=== PATIENT | female | born 1955 | race Caucasian/White ===

== ENCOUNTER → 2021-02-28 15:01 | Outpatient (CLI) | payer OTHER, SELFPAY ==
--- NOTE | ~2021-02-28 | MM_ITS ---
EXAMINATION: MM screening [facility] BI w yosvany HISTORY: Screening mammogram TECHNIQUE: Craniocaudal and mediolateral oblique 3-D tomosynthesis images were obtained and synthetic 2-D images were generated. CAD analysis was submitted and interpreted. COMPARISON: 08/01/2019, 12/14/2017, 11/27/2015 BREAST PARENCHYMAL COMPOSITION: There are scattered areas of fibroglandular density. FINDINGS: There is no evidence of suspicious mass, calcification, or architectural distortion to sugg est malignancy in either breast. There has been no suspicious interval change. IMPRESSION: 1. No mammographic evidence of malignancy. 2. Recommend routine screening mammography in one year. BI-RADS Category 1: Negative Reviewed, dictated and finalized at location A.
== END ==
PROVIDERS: PCP Family Medicine; Visit Provider Family Medicine
DX: Z12.31 Encounter for screening mammogram for malignant neoplasm of breast (principal)
CPT/HCPCS: 77063; 77067

== ENCOUNTER 2022-03-31 13:44 | Emergency (ER) | payer OTHER, SELFPAY ==
[2022-03-31 13:48] VITALS: BP 152/87; PULSE 79; RESP 16; TEMP 36.2; O2SAT 97
--- NOTE | 2022-03-31 14:08 | ED.ALLEREA ---
HPI - Allergic Reaction General Chief complaint: Allergic Reaction Stated complaint: insect bite/allergic reaction Time Seen by Provider: 03/31/22 14:01 History of Present Illness HPI narrative: 66-year-old female presents to the emergency room for evaluation of an insect bite and rash. Patient states she was outside gardening, when she was stung by an insect. Patient did not see the actual sting. Within 30 minutes she developed swelling around the site, and then developed pruritic rash to her arms and anterior posterior torso. Patient reportedly took 50 mg of Benadryl within 30 minutes of developing the rash. Patient initially had some shortness of breath and chest tightness, but that is since resolved. Related Data Allergies Allergy/AdvReac Type Severity Reaction Status Date / Time No Known Allergies Verified 03/31/22 13:50 Review of Systems Review of Systems: CONSTITUTIONAL: Denies fever, chills, or sweats. EYES: Denies visual changes, redness, or discharge. ENT: Denies rhinorrhea, congestion, sore throat, or otalgia. CARDIOVASCULAR: Denies chest pain, palpitations, or edema. RESPIRATORY: Denies cough or dyspnea. GASTROINTESTINAL: Denies abdominal pain, nausea, vomiting, or diarrhea. GENITOURINARY: Denies dysuria or hematuria. SKIN: Reports rash or itching. MUSCULOSKELETAL: Denies back pain, joint pain, or myalgia. NEUROLOGIC: Denies headache, numbness, dizziness, or weakness. PSYCHIATRIC: Denies anxiety or depression. [facility] Past Medical History Medical History Injury, wrist Internal hemorrhoids Surgical History Surgical History History of colonoscopy (~03/28/10) Family History Family History Father Acute myocardial infarction, Onset Age: 46 Mother Acute myocardial infarction, Onset Age: 76 Sibling Acute myocardial infarction, Onset Age: 40 Grandparent Carcinoma of colon, Onset Age: 80 Social History Social History Smoking status: Former smoker Alcohol intake: current Exam Narrative: GENERAL: Well-appearing, well-nourished, no physical limitations, and in no acute distress. HEAD: Normocephalic, atraumatic. EYES: Conjunctivae normal, PERRLA and EOMI. ENT: External nose normal, Nares clear, no rhinorrhea or epistaxis. Mucous membranes moist. Oropharynx without tonsillar hypertrophy exudate or other lesions. External ears normal, bilateral TMs normal bilaterally NECK: Supple. No adenopathy or masses. CHEST: Clear to auscultation. No respiratory distress. No wheezes rales or rhonchi. No tenderness. HEART: Regular rate and rhythm. No murmur heard. Normal peripheral pulses. EXTREMITIES: Normal range of motion. No edema. No clubbing or cyanosis SKIN: Swelling noted to left hand at the base of the thumb, centralized punctum jb there urticaria noted to bilateral axillae, and anterior posterior torso NEURO: No focal deficits. Alert and oriented x3. MAEW. CN's II-XI intact bilaterally, normal gait PSYCH: Cooperative. Normal mood and affect. Course Vital Signs Vital signs: Vital Signs Temperature 36.2 C L 03/31/22 13:48 Pulse Rate 79 03/31/22 13:48 Respiratory Rate 16 03/31/22 13:48 Blood Pressure 152/87 H 03/31/22 13:48 Pulse Oximetry 97 03/31/22 13:48 Temperature 36.2 C L 03/31/22 13:48 Pulse Rate 79 03/31/22 13:48 Respiratory Rate 16 03/31/22 13:48 Blood Pressure 152/87 H 03/31/22 13:48 Pulse Oximetry 97 03/31/22 13:48 Discharge Plan Discharge Clinical Impression: Allergic reaction Patient Disposition: Home, Self-Care Condition: Stable Instructions: Antibiotic Form, Insect Bite or Sting (ED), General Allergic Reaction (ED) Additional Instructions: Continue taking Benadryl as needed for the itching. May supplement Pe
[2022-03-31] MEDS: FAMOTIDINE 20 MG TABLET PO (14:12)
[2022-03-31 14:26] VITALS: BP 140/84; PULSE 70; RESP 16; O2SAT 99
== END 2022-03-31 14:26 | disposition home or self-care (01) ==
LOC: ANHED 14:09
PROVIDERS: Emergency Provider Nurse Practitioner Family; PCP Family Medicine
DX: T78.40XA Allergy, unspecified, initial encounter (principal)
CPT/HCPCS: 96372; 99283; A9270; J1100

== ENCOUNTER → 2023-01-15 11:12 | Outpatient (CLI) | payer MEDICARE, SELFPAY ==
--- NOTE | ~2023-01-15 | MM_ITS ---
EXAMINATION: MM screening [facility] BI w yosvany HISTORY: Screening mammogram TECHNIQUE: Craniocaudal and mediolateral oblique 3-D tomosynthesis images were obtained and synthetic 2-D images were generated. CAD analysis was submitted and interpreted. COMPARISON: 02/28/2021, 08/01/2019, 12/14/2017 BREAST PARENCHYMAL COMPOSITION: There are scattered areas of fibroglandular density. FINDINGS: No suspicious mass, calcification, or architectural distortion are identified in either kenneth ast to suggest malignancy. There has been no suspicious interval change. IMPRESSION: 1. No mammographic evidence of malignancy. 2. Recommend routine screening mammography in one year. BI-RADS Category 1: Negative Reviewed, dictated and finalized at location A.
== END ==
PROVIDERS: PCP Family Medicine; Visit Provider Family Medicine
DX: Z12.31 Encounter for screening mammogram for malignant neoplasm of breast (principal)
CPT/HCPCS: 77063; 77067

== ENCOUNTER 2023-04-08 11:32 | Outpatient (CLI) | payer MEDICARE, SELFPAY ==
[2023-04-08 13:04] LABS: Basophils Absolute Auto 0.1 K/mm3 (0.0-0.1); Basophils Percent Auto 0.9 % (0.2-1.2); Eosinophils Absolute Auto 0.1 K/mm3 (0-0.3); Eosinophils Percent Auto 1.9 % (0-4.4); Hematocrit 45.4 % (37.0-47.0); Hemoglobin 14.4 g/dL (12.0-15.0); Immature Granulocyte Absolute 0.02 K/mm3 (0.00-0.031); Immature Granulocyte Percent A 0.3 % (0-0.5); Lymphocytes Absolute Auto 2.57 K/mm3 (0.9-3.2); Lymphocytes Percent Auto 37.9 % (18.3-44.2); Mean Corpuscular HGB Conc 31.7 g/dl (32-36); Mean Corpuscular Hemoglobin 31.5 pg (26-34); Mean Corpuscular Volume 99.3 fl (80-100); Mean Platelet Volume 9.9 fl (7.4-10.4); Monocytes Absolute Auto 0.5 K/mm3 (0.1-0.6); Monocytes Percent Auto 7.7 % (2.6-8.5); Neutrophils Absolute Auto 3.5 K/mm3 (1.3-6.7); Neutrophils Percent Auto 51.3 % (45.5-73.1); Platelet Count Result 248 k/mm3 (150-375); Red Blood Count 4.57 M/mm3 (4.2-5.4); Red Cell Distribution Width 13.1 % (11.5-14.5); White Blood Count 6.8 K/mm3 (4.5-10.0)
[2023-04-08 13:22] LABS: Alanine Aminotransferase 21 U/L (6-35); Albumin Level 4.3 g/dL (3.5-5.1); Alkaline Phosphatase 56 U/L (38-126); Anion Gap 5 mmol/L (8-16); Aspartate Amino Transferase 37 U/L (14-36); Bilirubin,Total 0.7 mg/dL (0.2-1.3); Blood Urea Nitrogen 20 mg/dL (7-17); Calcium 9.8 mg/dL (8.4-10.2); Carbon Dioxide 31 mmol/L (22-30); Chloride 103 mmol/L (98-107); Cholesterol 225 mg/dL (0-200); Estimated Glomerular Filt Rate 56; Glucose 94 mg/dL (65-110); HDL Direct 98 mg/dL; Potassium 4.9 mmol/L (3.4-5.0); Sodium 139 mmol/L (137-145); Triglycerides 68 mg/dL (<150)
[2023-04-08 13:38] LABS: LDL Cholesterol Direct 92 mg/dL
[2023-04-08 13:52] LABS: Vitamin D 25 Hydroxy 51.5 ng/mL
[2023-04-08 18:01] LABS: Hepatitis C Virus Antibody Negative (Negative)
== END 2023-04-08 11:33 | disposition home or self-care (01) ==
LOC: ANHGOSHLAB 11:34
PROVIDERS: PCP Family Medicine; Visit Provider Family Medicine
DX: M85.80 Other specified disorders of bone density and structure, unspecified site (principal); Z11.59 Encounter for screening for other viral diseases; Z82.49 Family history of ischemic heart disease and other diseases of the circulatory system; E78.00 Pure hypercholesterolemia, unspecified
CPT/HCPCS: 36415; 80053; 80061; 82306; 85025; 86803

== ENCOUNTER 2024-08-09 13:54 | Outpatient (CLI) | payer MEDICARE, SELFPAY ==
--- NOTE | ~2024-08-09 | MM_ITS ---
EXAMINATION: MM screening [facility] BI w yosvany HISTORY: Screening TECHNIQUE: Craniocaudal and mediolateral oblique 3-D tomosynthesis images were obtained and synthetic 2-D images were generated. CAD analysis was submitted and interpreted. COMPARISON: Comparison to multiple prior studies sequentially, with oldest reviewed study dated 11/26. BREAST PARENCHYMAL COMPOSITION: Not dense: There are scattered areas of fibroglandular density. FINDINGS: There is no evidence of suspicious mass, calcification, or architectural distortion to sugg est malignancy in either breast. There has been no suspicious interval change. IMPRESSION: 1. No mammographic evidence of malignancy. 2. Recommend routine screening mammography in one year. BI-RADS Category 1: Negative Reviewed, dictated and finalized at location B. T FACILITIES TECHNICIAN
== END 2024-08-09 13:55 | disposition home or self-care (01) ==
LOC: MICIMG 13:55
PROVIDERS: PCP Family Medicine; Visit Provider Nurse Practitioner Family
DX: Z12.31 Encounter for screening mammogram for malignant neoplasm of breast (principal)
CPT/HCPCS: 77063; 77067

== ENCOUNTER 2025-03-26 08:02 | Outpatient (CLI) | payer MEDICARE, SELFPAY ==
--- OUTSIDE RECORDS SUMMARY | 2025-03-26 08:05 | XMS_ITS | Clinical Summary ---
Author Organization [facility] Address [address] 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
--- OUTSIDE RECORDS SUMMARY | 2025-03-26 08:05 | XMS_ITS | Clinical Summary ---
Author Organization [facility] Address [address] [place] [address] Care Team Providers Care Tool Grinder Operator External Name Role Phone None, Provider MD Primary Care Provider Unavaila ble Allergies No known active allergies Medications No known medications Immunizations Immunization Administration Dates Next Due Tdap (Boostrix) 10/20/2022 Social History Tobacco Use Types Packs/Day Years Used Date Smoking Tobacco: Never Smokeless Tobacco: Never Tobacco Cessation:Counseling Given: Not Answered Alcohol Use Standard Drinks/Week Comments Yes 0 (1 standard drink = 0.6 oz pur e alcohol) 4 drinks per week Comments No Sex and Gender Information Value Date Recorded Sex Assigned at Not on file Legal Sex Female 9:56 AM FILM PRINTER Gender Identity Not on file Sexual Orientation Not on file Last Filed Vital Signs Vital Sign Reading Time Taken Comments Blood Pressure 139/85 10/20/2022 11:57 AM FILM PRINTER Pulse 71 10/20/2022 11:57 AM FILM PRINTER Temperature 36.1 C (97 F) 10/20/2022 11:57 AM FILM PRINTER Respiratory Rate 18 10/20/2022 11:57 AM FILM PRINTER Oxygen Saturation 100% 10/20/2022 11:57 AM FILM PRINTER Inhaled Oxygen Concentration - - Weight 54.4 kg (120 lb) 10/20/2022 10:07 AM FILM PRINTER Height 162.6 cm (5' 4) 10/20/2022 10:07 AM FILM PRINTER Body Mass Index 20.6 10/20/2022 10:07 AM FILM PRINTER Plan of Treatment Health Maintenance Due Date Last Done Comments Colorectal Cancer Screening Colonoscopy (10 Years) 1957 Hepatitis C 12/27/1975 Mammogram Screening 1997 Pneumococcal Vaccine: 50+ Ye ars (1 of 1 - PCV) 12/27/2007 Zoster Vaccines (1 of 2) 12/27/2007 Dexa Scan (General) 2022 COVID-19 Vaccine (1 - 2023-2 5 season) 2024 DTaP, Tdap and Td Vaccines ( 2 - Td or Tdap) 10/20/2032 10/20/2022 RSV Immunization or 60+ Years (1 - 1-dose 75+ series) 2032 Meningococcal B Vaccine Aged Out No l onger eligible based on patient's age to complete this topic Meningococcal Vaccine Aged Out No sree zachery eligible based on patient's age to complete this topic RSV Immunizations Under 20 Months Aged Out No longer eligible based on patient's age to complete this topic Insurance [employer] Care Teams Tool Grinder Operator External Relationship Specialty Start Date End Date None, Provider, PCP - General UNKNOWN PHYSICIAN SPECIALTY 10/20/22
--- OUTSIDE RECORDS SUMMARY | 2025-03-26 08:05 | XMS_ITS | Referral Summary ---
Author Organization [place] [id number] [facility] Address [address] [place] [address] Care Team Providers Care Wood Lather Name Role Phone Harley Boyce MD Unavailable [phone] Leydi Bang MD Primary Care Provider + Allergies No known active allergies Medications calcium carb/vit D3/minerals (CALCIUM-VITAMI N D ORAL) Take by mouth 300 mg of Calcium Active multivitamin (MULTIPLE VITAMINS ORAL) Take by mouth Active ZINC ORAL Take by mouth Active Active Problems Problem Noted Date Diagnosed Date Decreased bone mass 12/28/2017 Osteopenia of multiple sites 12/28/2017 Osteoporosis 12/28/2017 Atypical chest pain 05/14/2015 Encounter for preventive health examination 03/14 Social History Tobacco Use Types Packs/Day Years Used Date Smoking Tobacco: Former Smokeless Tobacco: Never Tobacco Cessation:Counseling Given: Not Answered AUDIT-C Answer Date Recorded Q1: How often do you have a drink containing alc ohol? 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 Gender Identity Not on file Sexual Orientation Not on file Last Filed Vital Signs Vital Sign Reading Time Taken Comments Blood Pressure 138/86 06/23/2024 8:24 AM CDT Pulse 65 06/23/2024 8:24 AM CDT Temperature 37 C (98.6 F) 11/09/2022 2:01 PM TRUCK DRIVER TEAMSTER Respiratory Rate 20 11/09/2022 2:01 PM TRUCK DRIVER TEAMSTER Oxygen Saturation 97% 06/23/2024 8:24 AM CDT Inhaled Oxygen Concentration - - Weight 57.3 kg (126 lb 6.4 oz) 06/23/2024 8:24 A M CDT Height 162.6 cm (5' 4) 06/23/2024 8:24 AM CDT Body Mass Index 21.7 06/23/2024 8:24 AM CDT Plan of Treatment Not on file Procedures Procedure Name Priority Date/Time Associated Diagnosis Comments DEXA TBS AXIAL SKELETON BONE DENSITY 1 OR MORE SITES Schedule Routine, Read Routine (OP Routine) 07/06/2023 9:12 AM CDT Osteopenia of multiple sites from Last 3 Months or Most Recently Relevant to Health Maintenance Results * Dexa TBS Axial Skeleton Bone Density 1 or more sites (07/06/2023 9:12 AM CDT) Anatomical Region Laterality Modality Wrist, Body N/A Radiographic Camryn ging Narrative 07/06/2023 9:22 AM CDT Patient Name: Violeta Jennings Date of : 1955 Date of scan: 07/06/2023 Bone mineral density was performed on a [employer] Discovery Densitometer. Based on machine cross-calibration and precision studies the least significant changes of this densitometer is 0.024 g/cm2 at the spine, 0.020 g/cm2 at the total proximal femur, and 0.014g/cm2 at the forearm. HISTORY: This is a 67 y.o. postmenopausal female with a history of low bone mass and vitamin D deficiency. She reports that she has quit smoking. She does not have any smokeless tobacco history on file. Currently on treatment with calcium, vitamin D, and alendronate (Fosamax) and previously treated with raloxifene (Evista). INDICATIONS: Menopause status, treatment monitoring, vitamin D deficiency, and history of low bone mass. FINDINGS: BONE MINERAL DENSITY OF THE LUMBAR SPINE Bone Mineral Density (BMD) of the lumbar spine was measured from L1-L4 and the average density was calculated to be 0.825 gm/cm2. This corresponds to a T-score (standard deviations from the mean of young adults) of -2.0. When compared to the previous study of 07/02/2021 there has been no significant changes in bone density. BONE MINERAL DENSITY OF THE PROXIMAL FEMUR Bone Mineral Density (BMD) of the left hip total was found to be 0.859 gm/cm2. This corresponds to a T-score standard deviations from the mean of young adults of -0.7. Femoral neck is 0.680 gm/cm2 with a T-score (standard deviations from the mean of young adults) of -1.5. When compared to the previous study of 07/02/2021 there has been no significant changes in bone density. SUMMARY: Bone mineral density shows evidence of low bone mass at the lumbar spine and proximal femur and moderately increased fracture risk (Osteopenia). There has been no significant changes in bone density since previous measurement. The lumbar spine Trabecular Bone Score is 1.327 which suggests normal bone microarchitecture, compared to the general population. Final decisions regarding diagnostic or therapeutic recommendations should include BMD, TBS, additional clinical risk factors as well the clinical context of the patient. Please see attached TBS results for further details. ADDITIONAL COMMENTS: Postmenopausal Women and Men Over 50: Diagnostic criteria: Osteoporosis: BMD at or below -2.5 T-score; Osteopenia (low bone mass): BMD between -1.0 and -2.5 T-score. If the patient has a history of a fragility fracture, a fracture that occurred with trauma equivalent to a fall from a standing position or less, then the diagnosis is osteoporosis regardless of bone density. The history and data sections of the bone mineral density scan were prepared by Loyda Morin(R) CBDTeodoro who is accredited by the International Society of Clinical Densitometry. The overall patient assessment and scan interpretation were performed by Judith Stewart MD who is certified by the International Society of Clinical Densitometry. [id number] Judith Stewart MD IMG DXA PROCEDURES Final Resu lt from Last 3 Months or Most Recently Relevant to Health Maintenance Insurance [facility] [place] [address] [facility] [place] [address] [facility] Care Teams Wood Lather Relationship Specialty Start Date End Date Leydi Bang MD [facility] [address] [address] PCP - General Family Medicine 06/23/24 Harley Boyce MD Manager Sterile Cardiology 05/12/23
--- OUTSIDE RECORDS SUMMARY | 2025-03-26 08:05 | XMS_ITS | Encounter Summary ---
Author Organization [facility] Address [address] 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
--- OUTSIDE RECORDS SUMMARY | 2025-03-26 08:05 | XMS_ITS | Clinical Summary ---
Author Organization [place] [id number] [facility] Address [address] [place] [address] Care Team Providers Care Community Resource Officer Name Role Phone Harley Boyce MD Unavailable [phone] Leydi Bang MD Primary Care Provider + [...] 05/14/2015 Encounter for preventive health examination 03/14 Medical History Medical History Date Comments Sinusitis Osteopenia Family History Medical History Relation Name Comments Coronary artery disease Father Fami ly history of coronary artery disease - (Added by TW Conv)/Family history of coronary artery disease - (Added by TW Conv) Heart failure Father Family history of heart failure - (Added by TW Conv)/Family history of heart failure - (Added by TW Conv) Heart disease Sister Broken bones Neg Hx Hip fracture Neg Hx Kyphosis Neg Hx Osteoporosis Neg Hx Scoliosis Neg Hx Relation Name Status Comments Father Sister Social History Tobacco Use Types Packs/Day Years [...] on file Legal Sex Female 10:38 AM FILTER 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 Gender Identity Not on file Sexual Orientation Not on file Obstetrics History Last Filed Vital Signs Vital Sign Reading Time Taken Comments Blood Pressure 138/86 06/23/2024 8:24 AM CDT Pulse 65 06/23/2024 8:24 AM CDT Temperature 37 C (98.6 F) 11/09/2022 2:01 PM FILTER CLEANER Respiratory Rate 20 11/09/2022 2:01 PM FILTER CLEANER Oxygen Saturation 97% 06/23/2024 8:24 AM CDT Inhaled Oxygen Concentration - - Weight 57.3 kg (126 lb 6.4 oz) 06/23/2024 8:24 A M CDT Height 162.6 cm (5' 4) 06/23/2024 8:24 AM CDT Body Mass Index 21.7 06/23/2024 8:24 AM CDT Plan of Treatment Health Maintenance Due Date Last Done Comments Breast Cancer Screening-Mammogram 1955 Colon Cancer Screening-Colonoscopy 1957 Depression Screening 1957 Fall Risk Assessment 1955 Hepatitis C Screening 1955 Hepatitis B Screening 12/27/1975 Zoster Vaccine (1 of 2) 12/27/2007 Well Visit 65+ 2022 Covid-19 Vaccine (6 2023-2 5 season) 2024 06/11/2023, 06/08/2022, 07/30/2021, Additional history exists Influenza Vaccine (Season Ended) 2025 06/11/2023, 06/08/2022, 05/27/2021, Additional history exists Osteoporosis Screening-Bone Density Scan 07/06/2025 07/06/2023, 07/02/2021, 05/29/2020, Additional history exists DTaP/Tdap/Td Vaccine (3 - Td or Tdap) 10/20/2032 10/20/2022, 12/09/2015 Pneumococcal vaccine 65+ Completed 07/20/2023 Procedures Procedure Name Priority Date/Time Associated Diagnosis [...] Bone mineral density was performed on a [employer] Discovery Densitometer. Based on machine cross-calibration and [...] mineral density scan were prepared by Loyda Morin(Sharan) MILLY who is accredited by the International Society of Clinical Densitometry. The overall patient assessment and scan interpretation were performed by Judith Stewart MD who is certified by the International Society of Clinical Densitometry. [id number] Judith Stewart MD IMG DXA PROCEDURES Final Resu lt from Last 3 Months or Most Recently Relevant to Health Maintenance Insurance [facility] Care Teams Community Resource Officer Relationship Specialty Start Date End Date Leydi Bang MD [address] [place] [address] [address] PCP - General Family Medicine 06/23/24 Harley Boyce MD Track Repair Worker Cardiology 05/12/23
[2025-03-26 17:35] LABS: Hematocrit 38.5 % (37.0-47.0); Hemoglobin 12.5 g/dL (12.0-15.0); Mean Corpuscular HGB Conc 32.5 g/dl (32-36); Mean Corpuscular Hemoglobin 30.6 pg (26-34); Mean Corpuscular Volume 94.1 fl (80-100); Platelet Count Result 198 k/mm3 (150-375); Red Blood Count 4.09 M/mm3 (4.2-5.4); White Blood Count 6.9 K/mm3 (4.5-10.0)
[2025-03-26 17:39] LABS: Alanine Aminotransferase 91 U/L (6-35); Albumin Level 3.7 g/dL (3.5-5.1); Alkaline Phosphatase 89 U/L (38-126); Anion Gap 5 mmol/L (4-12); Aspartate Amino Transferase 89 U/L (14-36); Bilirubin,Total 0.5 mg/dL (0.2-1.3); Blood Urea Nitrogen 15 mg/dL (7-17); Calcium 8.7 mg/dL (8.4-10.2); Carbon Dioxide 26 mmol/L (22-30); Chloride 101 mmol/L (98-107); Cholesterol 159 mg/dL (0-200); Estimated Glomerular Filt Rate 54; Glucose 100 mg/dL (65-110); HDL Direct 33 mg/dL; Potassium 4.3 mmol/L (3.4-5.0); Sodium 132 mmol/L (137-145); Total Protein 7.2 g/dL (6.3-8.2); Triglycerides 137 mg/dL (<150)
[2025-03-26 18:13] LABS: Band Neutrophils Percent 9 % (0-6); Basophils Absolute Manual 0.06 K/mm3 (0.0-0.1); Basophils Percent Manual 1 % (0-1); Lymphocytes Absolute Manual 2.76 K/mm3 (1.1-4.5); Lymphocytes Percent Manual 40.0 % (18-44); Monocytes Absolute Manual 1.44 K/mm3 (0.1-0.90); Monocytes Percent Manual 21 % (3-9); Neutrophils Absolute Manual 2.62 K/mm3 (1.3-6.7); Neutrophils Percent Manual 29 % (46-73); Total Cells Counted 100
[2025-03-26 18:14] LABS: Schistocytes None Seen
[2025-03-26 18:25] LABS: Thyroid Stimulating Hormone 1.140 uIU/mL (0.465-4.680)
== END 2025-03-26 08:03 | disposition home or self-care (01) ==
LOC: ANHGOSHLAB 08:03
PROVIDERS: PCP Family Medicine; Visit Provider Family Medicine
DX: M85.80 Other specified disorders of bone density and structure, unspecified site (principal); Z78.0 Asymptomatic menopausal state; E78.2 Mixed hyperlipidemia; R53.83 Other fatigue; R93.1 Abnormal findings on diagnostic imaging of heart and coronary circulation; Z82.49 Family history of ischemic heart disease and other diseases of the circulatory system
CPT/HCPCS: 36415; 80053; 80061; 82306; 84443; 85025

== ENCOUNTER 2025-04-02 09:27 | Outpatient (CLI) | payer MEDICARE, SELFPAY ==
--- OUTSIDE RECORDS SUMMARY | 2025-04-02 09:40 | XMS_ITS | Clinical Summary ---
Author Organization [facility] Address [address] [place] [address] Care Team Providers Care Greenhouse Specialist Name Role Phone None, Provider MD Primary [...] on file Legal Sex Female 9:56 AM PROVER Gender Identity Not on file Sexual Orientation Not on file Last Filed Vital Signs Vital Sign Reading Time Taken Comments Blood Pressure 139/85 10/20/2022 11:57 AM PROVER Pulse 71 10/20/2022 11:57 AM PROVER Temperature 36.1 C (97 F) 10/20/2022 11:57 AM PROVER Respiratory Rate 18 10/20/2022 11:57 AM PROVER Oxygen Saturation 100% 10/20/2022 11:57 AM PROVER Inhaled Oxygen Concentration - - Weight 54.4 kg (120 lb) 10/20/2022 10:07 AM PROVER Height 162.6 cm (5' 4) 10/20/2022 10:07 AM PROVER Body Mass Index 20.6 10/20/2022 10:07 AM PROVER Plan of Treatment Health Maintenance Due Date [...] complete this topic Insurance [employer] Care Teams Greenhouse Specialist Relationship Specialty Start Date End Date None, Provider, PCP - General UNKNOWN PHYSICIAN SPECIALTY 10/20/22
--- OUTSIDE RECORDS SUMMARY | 2025-04-02 09:40 | XMS_ITS | Encounter Summary ---
Author Organization [facility] Address [address] Weiss[place]: Epic Prelude ADT [place] RITTER [address] Care Team Providers Care Shank Paperer Name Role Phone Unavailable Primary Care Provider [...] on file Legal Sex Female 3:02 AM PERSONAL CARE ATTENDANT Gender Identity Not on file Sexual Orientation Not on file documented as of this encounter Plan of Treatment Not on file documented as of this encounter Visit Diagnoses Not on filedocumented in this encounter
--- OUTSIDE RECORDS SUMMARY | 2025-04-02 09:40 | XMS_ITS | Clinical Summary ---
Author Organization [facility] Address [address] [place]: Epic Prelude ADT [place]RIX[place] [address] Care Team Providers Care Phytopathologist Name Role Phone Unavailable Primary Care Provider Unavailabl e Social History Tobacco Use Types Packs/Day Years Used Date Smoking Tobacco: Never Assessed Comments Unknown Sex and Gender Information Value Date Recorded Sex Assigned at Not on file Legal Sex Female 3:02 AM SUPERVISOR CEREAL Gender Identity Not on file Sexual Orientation [...]
--- OUTSIDE RECORDS SUMMARY | 2025-04-02 09:40 | XMS_ITS | Referral Summary ---
Author Organization [place] [id number] [facility] Address [address] [place] [address] Care Team Providers Care Production Quality Analyst Name Role Phone Harley Boyce MD Unavailable [phone] Leydi Bang MD Primary Care Provider + [...] on file Legal Sex Female 10:38 AM PORTER USED CAR LOT Gender Identity Not on file Sexual Orientation Not on file Last Filed Vital Signs Vital Sign Reading Time Taken Comments Blood Pressure 138/86 06/23/2024 8:24 AM CDT Pulse 65 06/23/2024 8:24 AM CDT Temperature 37 C (98.6 F) 11/09/2022 2:01 PM PORTER USED CAR LOT Respiratory Rate 20 11/09/2022 2:01 PM PORTER USED CAR LOT Oxygen Saturation 97% 06/23/2024 8:24 AM CDT [...] by the International Society of Clinical Densitometry. [id number] Judith Stewart MD IMG DXA PROCEDURES Final Resu lt from Last 3 Months or Most Recently Relevant to Health Maintenance Insurance [facility] [address] [facility] [place] [address] [facility] [employer] Care Teams Production Quality Analyst Relationship Specialty Start Date End Date Leydi Bang MD [facility] [address] [address] PCP - General Family Medicine 06/23/24 Harley Boyce MD Java Programmer Analyst Cardiology 05/12/23
--- OUTSIDE RECORDS SUMMARY | 2025-04-02 09:40 | XMS_ITS | Clinical Summary ---
Author Organization [place] [id number] [facility] Address [address] [place] [address] Care Team Providers Care Mis Manager Name Role Phone Harley Boyce MD Unavailable [phone] Leydi Bang MD Primary Care Provider + [...] on file Legal Sex Female 10:38 AM OPERATIONS LEADER Gender Identity Not on file Sexual Orientation Not on file Obstetrics History Last Filed Vital Signs Vital Sign Reading Time Taken Comments Blood Pressure 138/86 06/23/2024 8:24 AM CDT Pulse 65 06/23/2024 8:24 AM CDT Temperature 37 C (98.6 F) 11/09/2022 2:01 PM OPERATIONS LEADER Respiratory Rate 20 11/09/2022 2:01 PM OPERATIONS LEADER Oxygen Saturation 97% 06/23/2024 8:24 AM CDT [...] Bone mineral density was performed on a [employer] Discovery Densitometer. Based on machine cross-calibration and [...] by the International Society of Clinical Densitometry. [id number] Judith Stewart MD IMG DXA PROCEDURES Final Resu lt from Last 3 Months or Most Recently Relevant to Health Maintenance Insurance [facility] [employer] [facility] Care Teams Mis Manager Relationship Specialty Start Date End Date Leydi Bang MD [address] [place] [address] [address] PCP - General Family Medicine 06/23/24 Harley Boyce MD Orbitread Operator Cardiology 05/12/23
[2025-04-02 10:25] LABS: Alanine Aminotransferase 121 U/L (6-35); Albumin Level 3.5 g/dL (3.5-5.1); Alkaline Phosphatase 89 U/L (38-126); Anion Gap 4 mmol/L (4-12); Aspartate Amino Transferase 117 U/L (14-36); Bilirubin,Total 0.5 mg/dL (0.2-1.3); Blood Urea Nitrogen 13 mg/dL (7-17); Calcium 9.3 mg/dL (8.4-10.2); Carbon Dioxide 29 mmol/L (22-30); Chloride 98 mmol/L (98-107); Estimated Glomerular Filt Rate > 60; Glucose 93 mg/dL (65-110); Potassium 4.4 mmol/L (3.4-5.0); Sodium 131 mmol/L (137-145); Total Protein 6.9 g/dL (6.3-8.2)
== END 2025-04-02 09:28 | disposition home or self-care (01) ==
LOC: ANHLAB 09:35
PROVIDERS: PCP Family Medicine; Visit Provider Family Medicine
DX: R79.89 Other specified abnormal findings of blood chemistry (principal); E87.1 Hypo-osmolality and hyponatremia
CPT/HCPCS: 36415; 80048; 80076

== ENCOUNTER 2025-04-04 08:16 | Outpatient (CLI) | payer MEDICARE, SELFPAY ==
--- NOTE | ~2025-04-04 | US_ITS ---
US abdomen limited INDICATION: Abnormal lab values. PROCEDURE: Realtime right upper abdominal ultrasound. COMPARISON: No prior studies for comparison. FINDINGS: The pancreas is normal without focal mass or pancreatic ductal dilation. Liver echotexture is normal without focal mass or intrahepatic biliary dilatation. There is normal directional flow i n the portal vein. The gallbladder is normal without stones, gallbladder wall thickening or pericholecystic fluid. Comm on bile duct measures 4 mm. No sonographic Degroot's sign. IMPRESSION: 1: Normal limited abdominal ultrasound. Reviewed, dictated and finalized at location A.
== END 2025-04-04 08:17 | disposition home or self-care (01) ==
LOC: MICIMG 08:17
PROVIDERS: PCP Family Medicine; Visit Provider Family Medicine
DX: R79.89 Other specified abnormal findings of blood chemistry (principal)
CPT/HCPCS: 76705

== ENCOUNTER 2025-04-16 12:37 | Outpatient (CLI) | payer MEDICARE, SELFPAY ==
--- OUTSIDE RECORDS SUMMARY | 2025-04-16 12:40 | XMS_ITS | Clinical Summary ---
Author Organization [facility] Address [address] [place] [address] Care Team Providers Care Metal Hanging Supervisor Name Role Phone None, Provider MD Primary [...] on file Legal Sex Female 9:56 AM GEOCHEMICAL LABORATORY TECHNICIAN Gender Identity Not on file Sexual Orientation Not on file Last Filed Vital Signs Vital Sign Reading Time Taken Comments Blood Pressure 139/85 10/20/2022 11:57 AM GEOCHEMICAL LABORATORY TECHNICIAN Pulse 71 10/20/2022 11:57 AM GEOCHEMICAL LABORATORY TECHNICIAN Temperature 36.1 C (97 F) 10/20/2022 11:57 AM GEOCHEMICAL LABORATORY TECHNICIAN Respiratory Rate 18 10/20/2022 11:57 AM GEOCHEMICAL LABORATORY TECHNICIAN Oxygen Saturation 100% 10/20/2022 11:57 AM GEOCHEMICAL LABORATORY TECHNICIAN Inhaled Oxygen Concentration - - Weight 54.4 kg (120 lb) 10/20/2022 10:07 AM GEOCHEMICAL LABORATORY TECHNICIAN Height 162.6 cm (5' 4) 10/20/2022 10:07 AM GEOCHEMICAL LABORATORY TECHNICIAN Body Mass Index 20.6 10/20/2022 10:07 AM GEOCHEMICAL LABORATORY TECHNICIAN Plan of Treatment Health Maintenance Due Date [...] complete this topic Insurance [employer] Care Teams Metal Hanging Supervisor Relationship Specialty Start Date End Date None, Provider, PCP - General UNKNOWN PHYSICIAN SPECIALTY 10/20/22
--- OUTSIDE RECORDS SUMMARY | 2025-04-16 12:40 | XMS_ITS | Clinical Summary ---
Author Organization [facility] Address [address] Partida: Epic Prelude ADT [place] [address] Care Team Providers Care L Tacker Name Role Phone Unavailable Primary Care Provider Unavailabl e Social History Tobacco Use Types Packs/Day Years Used Date Smoking Tobacco: Never Assessed Comments Unknown Sex and Gender Information Value Date Recorded Sex Assigned at Not on file Legal Sex Female 3:02 AM STRETCHER DRIER OPERATOR Gender Identity Not on file Sexual Orientation [...]
--- OUTSIDE RECORDS SUMMARY | 2025-04-16 12:40 | XMS_ITS | Referral Summary ---
Author Organization [place] [id number] [facility] Address [address] [place] [address] Care Team Providers Care Hogshead Head Matcher Name Role Phone Harley Boyce MD Unavailable [phone] Leydi Bang MD Primary Care Provider + [...] on file Legal Sex Female 10:38 AM WASHER OFF Gender Identity Not on file Sexual Orientation Not on file Last Filed Vital Signs Vital Sign Reading Time Taken Comments Blood Pressure 138/86 06/23/2024 8:24 AM CDT Pulse 65 06/23/2024 8:24 AM CDT Temperature 37 C (98.6 F) 11/09/2022 2:01 PM WASHER OFF Respiratory Rate 20 11/09/2022 2:01 PM WASHER OFF Oxygen Saturation 97% 06/23/2024 8:24 AM CDT [...] by the International Society of Clinical Densitometry. [id number] Judith Stewart MD IMG DXA PROCEDURES Final Resu lt from Last 3 Months or Most Recently Relevant to Health Maintenance Insurance [facility] [place] [address] [facility] [place] [address] [facility] [employer] Care Teams Hogshead Head Matcher Relationship Specialty Start Date End Date Leydi Bang MD [facility] [address] [address] PCP - General Family Medicine 06/23/24 Harley Boyce MD Dental Hygienist Cardiology 05/12/23
--- OUTSIDE RECORDS SUMMARY | 2025-04-16 12:40 | XMS_ITS | Encounter Summary ---
Author Organization [facility] Address [address] Weissn: Epic Prelude ADT [place] RITTER [address] Care Team Providers Care Professor Of Psychology Name Role Phone Unavailable Primary Care Provider [...] on file Legal Sex Female 3:02 AM CHIEF LIBRARIAN MUSIC DEPARTMENT Gender Identity Not on file Sexual Orientation Not on file documented as of this encounter Plan of Treatment Not on file documented as of this encounter Visit Diagnoses Not on filedocumented in this encounter
--- OUTSIDE RECORDS SUMMARY | 2025-04-16 12:40 | XMS_ITS | Clinical Summary ---
Author Organization [place] 934104 [facility] Address [address] [place] [address] Care Team Providers Care Siphon Operator Name Role Phone Harley Boyce MD Unavailable [phone] Leydi Bang MD Primary Care Provider + [...] on file Legal Sex Female 10:38 AM MARINE METEOROLOGIST Gender Identity Not on file Sexual Orientation Not on file Obstetrics History Last Filed Vital Signs Vital Sign Reading Time Taken Comments Blood Pressure 138/86 06/23/2024 8:24 AM CDT Pulse 65 06/23/2024 8:24 AM CDT Temperature 37 C (98.6 F) 11/09/2022 2:01 PM MARINE METEOROLOGIST Respiratory Rate 20 11/09/2022 2:01 PM MARINE METEOROLOGIST Oxygen Saturation 97% 06/23/2024 8:24 AM CDT [...] 12/27/2007 Well Visit 65+ 2022 Covid-19 Vaccine (2023-2 5 season) 2024 06/11/2023, 06/08/2022, 07/30/2021, Additional history exists Influenza Vaccine (#1) 2025 , 06/08/2022, 05/27/2021, Additional history exists Osteoporosis Screening-Bone [...] Bone mineral density was performed on a [employer] Discovery Densitometer. Based on machine cross-calibration and [...] by the International Society of Clinical Densitometry. [id number] Judith Stewart MD IMG DXA PROCEDURES Final Resu lt from Last 3 Months or Most Recently Relevant to Health Maintenance Insurance [facility] [employer] [facility] [employer] Care Teams Siphon Operator Relationship Specialty Start Date End Date Leydi Bang MD [address] [place] [address] [address] PCP - General Family Medicine 06/23/24 Harley Boyce MD Churn Operator Margarine Cardiology 05/12/23
[2025-04-16 15:28] LABS: Alanine Aminotransferase 55 U/L (6-35); Albumin Level 3.8 g/dL (3.5-5.1); Alkaline Phosphatase 76 U/L (38-126); Anion Gap 5 mmol/L (4-12); Aspartate Amino Transferase 69 U/L (14-36); Bilirubin,Total 0.7 mg/dL (0.2-1.3); Blood Urea Nitrogen 15 mg/dL (7-17); Calcium 9.8 mg/dL (8.4-10.2); Carbon Dioxide 27 mmol/L (22-30); Chloride 104 mmol/L (98-107); Estimated Glomerular Filt Rate 57; Glucose 84 mg/dL (65-110); Potassium 4.7 mmol/L (3.4-5.0); Sodium 136 mmol/L (137-145); Total Protein 7.4 g/dL (6.3-8.2)
== END 2025-04-16 12:38 | disposition home or self-care (01) ==
PROVIDERS: PCP Family Medicine; Visit Provider Family Medicine
DX: R79.89 Other specified abnormal findings of blood chemistry (principal); E87.1 Hypo-osmolality and hyponatremia
CPT/HCPCS: 36415; 80053

== ENCOUNTER 2025-05-07 11:01 | Outpatient (CLI) | payer MEDICARE, SELFPAY ==
--- NOTE | ~2025-05-07 | XR_ITS ---
EXAMINATION: XR wrist LT min 3V DATE: 05/07/2025 11:46 INDICATION: Pain in left wrist. TECHNIQUE:4 images of the left wrist were obtained. COMPARISON: none FINDINGS: Bones appear osteopenic. Severe joint space narrowing with mild osteophytosis about the first carpometacarpal joint with adjacent soft tissue swelling. No fracture. No dislocation. IMPRESSION: 1. Severe joint space narrowing with mild osteophytosis about the first carpometacarpal joint is adjacent soft tissue swelling. If symptoms persist or worsen, consider a short-term follow-up study or additional imaging for further assessment. Reviewed, dictated and finalized at location Q. IMPRESSION: 1. Severe joint space narrowing with mild osteophytosis about the first carpome tacarpal joint is adjacent soft tissue swelling. If symptoms persist or worsen, consider a short-term follow-up study or additio nal imaging for further assessment.
== END 2025-05-07 11:02 | disposition home or self-care (01) ==
PROVIDERS: PCP Family Medicine; Visit Provider Student in an Organized Health Care Education/Training Program
DX: M18.12 Unilateral primary osteoarthritis of first carpometacarpal joint, left hand (principal); M25.432 Effusion, left wrist
CPT/HCPCS: 73110

== ENCOUNTER 2025-06-18 07:57 | Outpatient (CLI) | payer MEDICARE, SELFPAY ==
--- OUTSIDE RECORDS SUMMARY | 2025-06-18 08:07 | XMS_ITS | Clinical Summary ---
Author Organization [facility] Address [address] [place] [address] Care Team Providers Care Machine Stamper Name Role Phone None, Provider MD Primary [...] on file Legal Sex Female 9:56 AM CRUDE OIL TREATER Gender Identity Not on file Sexual Orientation Not on file Last Filed Vital Signs Vital Sign Reading Time Taken Comments Blood Pressure 139/85 10/20/2022 11:57 AM CRUDE OIL TREATER Pulse 71 10/20/2022 11:57 AM CRUDE OIL TREATER Temperature 36.1 C (97 F) 10/20/2022 11:57 AM CRUDE OIL TREATER Respiratory Rate 18 10/20/2022 11:57 AM CRUDE OIL TREATER Oxygen Saturation 100% 10/20/2022 11:57 AM CRUDE OIL TREATER Inhaled Oxygen Concentration - - Weight 54.4 kg (120 lb) 10/20/2022 10:07 AM CRUDE OIL TREATER Height 162.6 cm (5' 4) 10/20/2022 10:07 AM CRUDE OIL TREATER Body Mass Index 20.6 10/20/2022 10:07 AM CRUDE OIL TREATER Plan of Treatment Health Maintenance Due Date Last Done Comments Colorectal Cancer Screening Colonoscopy (10 Years) 1955 Hepatitis C 12/27/1975 Mammogram Screening 1997 Pneumococcal Vaccine: 50+ Ye ars (1 of 1 - PCV) 12/27/2007 Zoster Vaccines (1 of 2) 12/27/2007 Dexa Scan (General) 2022 COVID-19 Vaccine (1 - 2023-2 5 season) 2025 Influenza Adult (#1) 2025 DTaP, Tdap and Td Vaccines ( 2 [...] complete this topic Insurance [employer] Care Teams Machine Stamper Relationship Specialty Start Date End Date None, Provider, MD PCP - General UNKNOWN PHYSICIAN SPECIALTY 10/20/22
--- OUTSIDE RECORDS SUMMARY | 2025-06-18 08:07 | XMS_ITS | Clinical Summary ---
Author Organization [place] 869[address] [facility] Address [address] [place] [address] Care Team Providers Care Hourly Caregiver Name Role Phone Harley Boyce MD Unavailable [phone] Leydi Bang MD Primary Care Provider + [...] on file Legal Sex Female 10:38 AM RETAIL PLANNING MANAGER Gender Identity Not on file Sexual Orientation Not on file Obstetrics History Last Filed Vital Signs Vital Sign Reading Time Taken Comments Blood Pressure 138/86 06/23/2024 8:24 AM CDT Pulse 65 06/23/2024 8:24 AM CDT Temperature 37 C (98.6 F) 11/09/2022 2:01 PM RETAIL PLANNING MANAGER Respiratory Rate 20 11/09/2022 2:01 PM RETAIL PLANNING MANAGER Oxygen Saturation 97% 06/23/2024 8:24 AM CDT [...] Well Visit 65+ 2022 Covid-19 Vaccine (6 - 2024-2 6 season) 2025 06/11/2023, 06/08/2022, 07/30/2021, Additional history exists Influenza [...] Narrative 07/06/2023 9:22 AM CDT Patient Name: Voileta Jennings Date of : 1955 Date of scan: 07/06/2023 Bone mineral density was performed on a [employer] Discovery Densitometer. Based on machine cross-calibration and [...] bone mineral density scan were prepared by Lyoda Morin(Sharan) MILLY who is accredited by the International Society of Clinical Densitometry. The overall patient assessment and scan interpretation were performed by Judith Stewart MD who is certified by the International Society of Clinical Densitometry. [id number] Judith Stewart MD IMG DXA PROCEDURES Final Resu lt from Last 3 Months or Most Recently Relevant to Health Maintenance Insurance [facility] Care Teams Hourly Caregiver Relationship Specialty Start Date End Date Leydi Bang MD [address] [place] [address] [address] PCP - General Family Medicine 06/23/24 Harley Boyce MD Brush Machine Setter Cardiology 05/12/23
--- OUTSIDE RECORDS SUMMARY | 2025-06-18 08:07 | XMS_ITS | Clinical Summary ---
Author Organization [facility] Address [address] Partida: Epic Prelude ADT [place]XCORIN[place] [address] Care Team Providers Care Codifier Name Role Phone Unavailable Primary Care Provider Unavailabl e Social History Tobacco Use Types Packs/Day Years Used Date Smoking Tobacco: Never Assessed Comments Unknown Sex and Gender Information Value Date Recorded Sex Assigned at Not on file Legal Sex Female 3:02 AM YOGHURT MAKER Gender Identity Not on file Sexual Orientation [...]
--- OUTSIDE RECORDS SUMMARY | 2025-06-18 08:07 | XMS_ITS | Encounter Summary ---
Author Organization [facility] Address [address] Weissn: Epic Prelude ADT [place] RITTER [address] Care Team Providers Care Combine Mechanic Name Role Phone Unavailable Primary Care Provider [...] on file Legal Sex Female 3:02 AM REFRIGERATION PERSON Gender Identity Not on file Sexual Orientation Not on file documented as of this encounter Plan of Treatment Not on file documented as of this encounter Visit Diagnoses Not on filedocumented in this encounter
[2025-06-18 13:01] LABS: Alanine Aminotransferase 25 U/L (6-35); Albumin Level 4.2 g/dL (3.5-5.1); Alkaline Phosphatase 68 U/L (38-126); Aspartate Amino Transferase 50 U/L (14-36); Bilirubin,Total 0.5 mg/dL (0.2-1.3); Total Protein 7.4 g/dL (6.3-8.2)
[2025-06-18 13:02] LABS: Cholesterol 199 mg/dL (0-200); HDL Direct 77 mg/dL; Triglycerides 79 mg/dL (<150)
== END 2025-06-18 07:58 | disposition home or self-care (01) ==
LOC: ANHGOSHLAB 07:58
PROVIDERS: PCP Family Medicine; Visit Provider Family Medicine
DX: R79.89 Other specified abnormal findings of blood chemistry (principal); E78.5 Hyperlipidemia, unspecified; Z87.891 Personal history of nicotine dependence; Z82.49 Family history of ischemic heart disease and other diseases of the circulatory system
CPT/HCPCS: 36415; 80061; 80076; 82172; 83695